=== PATIENT | female | born 2000 | race Caucasian/White ===

== ENCOUNTER 2022-06-07 14:19 | Outpatient (CLI) | payer BC, SELFPAY ==
[2022-06-07 21:51] LABS: Albumin* 4.7 g/dL (3.3-5.0)
[2022-06-07 21:52] LABS: Chloride* 104 mmol/L (96-114); Potassium* 4.3 mmol/L (3.6-5.1); Sodium* 139 mmol/L (135-149)
[2022-06-07 21:53] LABS: Cholesterol* 180 mg/dL (90-199); Creatinine* 0.7 mg/dL (0.5-1.5); Estimated Glomerular Filt Rate 127 ml/min
[2022-06-07 21:54] LABS: Alanine Aminotransferase* 14 U/L (4-35); Alkaline Phosphatase* 77 U/L (40-150); Aspartate Amino Transferase* 22 U/L (12-35); Bilirubin Total* 0.4 mg/dL (0.1-1.5); Blood Urea Nitrogen* 9 mg/dL (5-24); Calcium* 9.9 mg/dL (8.4-10.6); Carbon Dioxide* 28 mmol/L (20-32); Glucose* 93 mg/dL (60-115); Total Protein* 7.7 g/dL (6.0-8.3); Triglycerides* 82 mg/dL (40-149)
[2022-06-07 21:55] LABS: HDL Cholesterol* 65 mg/dL (>=50); LDL Cholesterol Calculated 99 mg/dL (<100)
[2022-06-07 22:28] LABS: TSH With Reflex to FT4* 0.958 uIU/mL (0.270-4.200)
[2022-06-07 22:36] LABS: HIV 1/2/P24 Combo Screen* Negative (Negative)
[2022-06-07 22:45] LABS: Hepatitis C Virus Antibody* Negative (Negative)
[2022-06-07 23:36] LABS: Chlamydia DNA Amplified* NOT DETECTED (No Detected); GC DNA Amplified* NOT DETECTED (No Detected)
[2022-06-10 00:16] LABS: Rapid Plasma Reagin (RPR) Non Reactive (Non Reactive)
== END 2022-06-07 14:20 | disposition home or self-care (01) ==
PROVIDERS: PCP Emergency Medicine; Visit Provider Physician Assistant Medical
DX: Z00.00 Encounter for general adult medical examination without abnormal findings (principal); R53.83 Other fatigue; Z13.6 Encounter for screening for cardiovascular disorders; Z11.3 Encounter for screening for infections with a predominantly sexual mode of transmission
CPT/HCPCS: 80053; 80061; 84443; 86592; 86703; 86803; 87491; 87591

== ENCOUNTER 2024-02-20 13:28 | Outpatient (CLI) | payer BC, SELFPAY ==
[2024-02-21 15:25] LABS: Chlamydia DNA Amplified* NOT DETECTED (No Detected); GC DNA Amplified* NOT DETECTED (No Detected)
== END 2024-02-20 13:29 | disposition home or self-care (01) ==
PROVIDERS: PCP Emergency Medicine; Visit Provider Physician Assistant Medical
DX: Z13.220 Encounter for screening for lipoid disorders (principal); Z13.1 Encounter for screening for diabetes mellitus; Z13.29 Encounter for screening for other suspected endocrine disorder; Z11.3 Encounter for screening for infections with a predominantly sexual mode of transmission
CPT/HCPCS: 80061; 82947; 84443; 86592; 86703; 86803; 87491; 87591